=== PATIENT | male | born 1975 | race Caucasian/White ===

== ENCOUNTER 2019-01-12 12:11 | Emergency (ER) | payer OTHER ==
[2019-01-12] MEDS: KETOROLAC 60 MG INJ IM (14:06)
[2019-01-12] MEDS: IBUPROFEN 600 MG TAB PO (14:33)
== END 2019-01-12 15:07 | disposition home or self-care (01) ==
LOC: FTE 12:11
DX: M54.6 Pain in thoracic spine (principal); F17.210 Nicotine dependence, cigarettes, uncomplicated
CPT/HCPCS: 71045; 99283-25